=== PATIENT | female | born 1965 | race Caucasian/White ===

== ENCOUNTER 2024-03-02 18:24 | Inpatient (IN) | payer OTHER ==
[~2024-03-02] VITALS: Ht 152.4 cm; Wt 74.4 kg
[2024-03-02] MEDS: MORPHINE SULFATE 4 MG/ML INJ (FOR IV/IM USE) IV STA (19:03)
[2024-03-02] MEDS: SODIUM CHLORIDE 0.9% 1,000 ML IV ONE (19:03)
[2024-03-02] MEDS: ONDANSETRON HCL 4MG/2ML INJ IV STA (19:03)
[2024-03-02 19:17] LABS: BASOPHILS % 0.5 % (0.0-2.0); EOSINOPHILS % 0.3 % (0.0-5.0); HEMATOCRIT. 42.4 % (36.0-48.0); HEMOGLOBIN. 14.9 g/dL (12.0-16.0); LYMPHOCYTES % 15.1 % (20.0-50.0); MEAN CORPUSCULAR HEMOGLOBIN 33.7 pg (28.0-32.0); MEAN CORPUSCULAR HGB CONC 35.1 g/dL (31.0-37.0); MEAN CORPUSCULAR VOLUME 96.2 fL (81.0-99.0); MEAN PLATELET VOLUME 8.8 fl (7.4-10.4); MONOCYTES % 7.9 % (2.0-8.0); NEUTROPHILS % 76.2 % (40.0-76.0); PLATELET 457 x1000/uL (130-400); RED BLOOD CELL COUNT 4.41 mill/uL (4.2-5.4); RED CELL DISTRIBUTION WIDTH 13.5 % (11.6-14.6)
[2024-03-02 19:26] LABS: INR 0.9; PROTHROMBIN TIME 10.5 sec (9.6-11.0)
[2024-03-02] MEDS: MORPHINE SULFATE 4 MG/ML INJ (FOR IV/IM USE) IV ONE (20:05)
[2024-03-02] MEDS ORDERED: ACETAMINOPHEN 650MG/20.3ML UDC PO ONE (23:45)
[2024-03-03] VITALS: BP_SYST 142; BP_SYST 154; BP_DIAS 77; BP_DIAS 87; PULSE 70; PULSE 74; RESP 18; TEMP 97.7
[2024-03-03] MEDS ORDERED: CLON0.122 MT (01:11)
[2024-03-03] MEDS ORDERED: MELO-106 PO (01:20)
[2024-03-03] MEDS ORDERED: METH-774 MT (01:26)
[2024-03-03] MEDS ORDERED: ONDANSETRON HCL 4MG/2ML INJ IV PRN (01:30)
[2024-03-03] MEDS ORDERED: NA PHOS,M-B/NA PHOS,DI-BA ENEMA 118ML PR PRN (01:30)
[2024-03-03] MEDS ORDERED: IPRATROPIUM/ALBUTEROL 0.5-3(2.5)MG/3ML NEB HHN PRN (01:30)
[2024-03-03] MEDS ORDERED: MAGNESIUM/ALUMINUM HYDROXIDE/SIMETHICONE 30ML UDC PO PRN (01:30)
[2024-03-03] MEDS ORDERED: ACETAMINOPHEN 325MG TABLET PO PRN (01:30)
[2024-03-03] MEDS ORDERED: ESCI5SOL2 PO (01:30)
[2024-03-03] MEDS ORDERED: HYDRALAZINE 20MG/ML VIAL IV PRN (01:30)
[2024-03-03] MEDS ORDERED: DOXE10CA2 PO (01:33)
[2024-03-03] MEDS ORDERED: LAMO200T50 MT (01:37)
[2024-03-03] MEDS ORDERED: LAMO200T50 PO (01:37)
[2024-03-03] MEDS ORDERED: ALPR-339 MT (01:40)
[2024-03-03] MEDS ORDERED: HYDRALAZINE 10 MG in SODIUM CHLORIDE 0.9% 49.5 ML IV PRN (02:00)
[2024-03-03] MEDS ORDERED: *PATIENT'S OWN MEDICATION STORAGE XX SCH (03:15)
[2024-03-03] MEDS: PANTOPRAZOLE SODIUM 40 MG/VIAL IV SCH (03:28)
[2024-03-03] MEDS: MVI, ADULT NO.1 10 ML, FOLIC ACID 1 MG, THIAMINE HCL 100 MG in SODIUM CHLORIDE 0.9% 1,0... IV NR (03:28)
[2024-03-03 04:00] VITALS: BP 142/77; PULSE 70; RESP 18; TEMP 97.7
[2024-03-03 05:46] LABS: CLARITY URINE CLEAR (CLEAR); COLOR URINE YELLOW (YELLOW); GLUCOSE URINE NEGATIVE (NEGATIVE); KETONES URINE TRACE (NEGATIVE); LEUKOCYTE ESTERASE URINE TRACE (NEGATIVE); NITRITE URINE NEGATIVE (NEGATIVE); OCCULT BLOOD URINE NEGATIVE (NEGATIVE); PROTEIN URINE NEGATIVE (NEGATIVE); SPECIFIC GRAVITY URINE 1.013 (1.005-1.030)
[2024-03-03 05:47] LABS: CHLORIDE 101 mEq/L (98-107); SODIUM 138 mEq/L (136-145)
[2024-03-03 05:48] LABS: CALCIUM 8.4 mg/dL (8.7-10.4); CARBON DIOXIDE 29 mEq/L (21-32)
[2024-03-03 05:53] LABS: CREATININE 0.6 mg/dL (0.6-1.0); GLUCOSE 115 mg/dL (70-105); UREA NITROGEN BLOOD 8 mg/dL (9-23)
[2024-03-03 05:55] LABS: ALANINE AMINOTRANSFERASE 15 IU/L (10-49); ALBUMIN 3.9 g/dL (3.2-4.8); ASPARTATE AMINOTRANSFERASE 17 IU/L (<34); CREATINE KINASE 67 IU/L (34-145); INR 0.9; PHOSPHORUS 4.3 mg/dL (2.5-4.9); PROTHROMBIN TIME 10.4 sec (9.6-11.0)
[2024-03-03 05:56] LABS: PROTEIN TOTAL 5.7 g/dL (6.0-8.3); TROPONIN I HIGH SENSITIVITY < 4 ng/L (3.0-34)
[2024-03-03 05:56] LABS: *AMPHETAMINES SCREEN URINE NEGATIVE (NEGATIVE); *BARBITURATES SCREEN URINE NEGATIVE (NEGATIVE); *BENZODIAZEPINES SCREEN URINE PRESUMPTIVE POSITIVE (NEGATIVE); *COCAINE SCREEN URINE NEGATIVE (NEGATIVE); METHADONE URINE SCREEN NEGATIVE (NEGATIVE)
[2024-03-03 05:57] LABS: CANNABINOID URINE SCREEN PRESUMPTIVE POSITIVE (NEGATIVE); ECSTASY MDMA SCREEN URINE NEGATIVE (NEGATIVE); OPIATES URINE SCREEN PRESUMPTIVE POSITIVE (NEGATIVE); PHENCYCLIDINE URINE SCREEN NEGATIVE (NEGATIVE)
[2024-03-03 05:58] LABS: FOLIC ACID (FOLATE) SERUM > 20.00 ng/mL (>5.38); VITAMIN B12 SERUM 680 pg/mL (211-911)
[2024-03-03 05:59] LABS: POTASSIUM 2.7 mEq/L (3.5-5.1)
[2024-03-03 06:11] LABS: WBC URINE NONE SEEN /hpf (0-2)
[2024-03-03 06:12] LABS: BACTERIA URINE TRACE; RBC URINE NONE SEEN /hpf (0-2); SQUAMOUS EPITHELIAL CELL URINE NONE SEEN /lpf (RARE/1+)
[2024-03-03] MEDS: SUCRALFATE 1G TABLET PO SCH (07:20)
[2024-03-03 08:00] VITALS: BP 134/82; PULSE 66; RESP 18; TEMP 97.6
[2024-03-03] MEDS: POTASSIUM CHLORIDE 20MEQ/PACKET PO NR (09:00)
[2024-03-03 12:00] VITALS: BP 123/72; PULSE 59; RESP 18; TEMP 98.3
[2024-03-03] MEDS: KCL 20MEQ/100ML PREMIX 100 ML IV SCH (13:21)
[2024-03-03 15:21] LABS: CREATINE KINASE MB FRACTION 0.7 ng/mL (0.5-3.6)
[2024-03-03 15:22] LABS: CREATINE KINASE 50 IU/L (34-145)
[2024-03-03 15:35] LABS: TROPONIN I HIGH SENSITIVITY < 4 ng/L (3.0-34)
[2024-03-03 16:00] VITALS: BP 138/77; PULSE 17; RESP 17; TEMP 98.6
[2024-03-03 20:00] VITALS: BP 126/72; PULSE 60; RESP 19; TEMP 97.6
[2024-03-04] VITALS: BP 143/77; PULSE 66; RESP 20; TEMP 97.8
[2024-03-04] MEDS: LORAZEPAM 2MG/ML INJ IV PRN (00:54)
[2024-03-04 04:00] VITALS: BP 150/75; PULSE 72; RESP 19; TEMP 97.7
[2024-03-04 06:45] LABS: EOSINOPHILS % 3.1 % (0.0-5.0); HEMOGLOBIN. 13.2 g/dL (12.0-16.0); MEAN CORPUSCULAR HEMOGLOBIN 33.9 pg (28.0-32.0); MEAN CORPUSCULAR HGB CONC 34.6 g/dL (31.0-37.0); MEAN CORPUSCULAR VOLUME 97.8 fL (81.0-99.0); MEAN PLATELET VOLUME 8.6 fl (7.4-10.4); MONOCYTES % 10.4 % (2.0-8.0); NEUTROPHILS % 48.5 % (40.0-76.0); PLATELET 337 x1000/uL (130-400); RED BLOOD CELL COUNT 3.89 mill/uL (4.2-5.4); RED CELL DISTRIBUTION WIDTH 13.3 % (11.6-14.6); WHITE BLOOD COUNT 7.6 x1000/uL (4.5-11.0)
[2024-03-04 07:07] LABS: CHLORIDE 105 mEq/L (98-107); POTASSIUM 3.1 mEq/L (3.5-5.1); SODIUM 141 mEq/L (136-145)
[2024-03-04 07:08] LABS: CALCIUM 9.2 mg/dL (8.7-10.4); CARBON DIOXIDE 27 mEq/L (21-32)
[2024-03-04 07:12] LABS: TRIGLYCERIDE 71 mg/dL (0-150)
[2024-03-04 07:13] LABS: CREATININE 0.5 mg/dL (0.6-1.0); GLUCOSE 79 mg/dL (70-105); PROTEIN TOTAL 5.4 g/dL (6.0-8.3); UREA NITROGEN BLOOD 5 mg/dL (9-23)
[2024-03-04 07:14] LABS: ALANINE AMINOTRANSFERASE 13 IU/L (10-49); LDL CHOLESTEROL 49 mg/dL (5-100)
[2024-03-04 07:15] LABS: ALBUMIN 3.7 g/dL (3.2-4.8); ASPARTATE AMINOTRANSFERASE 16 IU/L (<34); BILIRUBIN DIRECT 0.2 mg/dL (<=3.0); CHOLESTEROL 118 mg/dL (<200); HDL CHOLESTEROL 59 mg/dL (>65); PHOSPHORUS 3.7 mg/dL (2.5-4.9); THYROID STIMULATING HORMONE 1.27 uIU/mL (0.55-4.78)
[2024-03-04 07:16] LABS: BILIRUBIN TOTAL 0.5 mg/dL (0.1-1.0)
[2024-03-04 08:00] VITALS: BP 133/83; PULSE 62; RESP 17; TEMP 98.7
[2024-03-04] MEDS: THIAMINE HCL 100MG TABLET PO SCH (08:24)
[2024-03-04] MEDS: POTASSIUM CHLORIDE 20MEQ TABLET SR PO NR (10:31)
[2024-03-04] MEDS: ACETAMINOPHEN 325MG TABLET PO PRN (10:51)
[2024-03-04 12:00] VITALS: BP 110/69; PULSE 64; RESP 18; TEMP 97.3
[2024-03-04] MEDS ORDERED: ESCI-7 MT (13:35)
[2024-03-04] MEDS ORDERED: MELO-106 MT (13:35)
[2024-03-04] MEDS ORDERED: DOXE10CA2 MT (13:35)
[2024-03-04] MEDS ORDERED: ONDA4TAB50 MT (13:35)
[2024-03-04] MEDS ORDERED: LAMO200T9 MT (13:35)
[2024-03-04] MEDS ORDERED: CLON1TAB12 PO (13:35)
[2024-03-04] MEDS ORDERED: METH-773 MT (13:35)
[2024-03-04] MEDS ORDERED: NON FORMULARY PATIENT HOME MED PO SCH ×2 (14:30→21:00)
[2024-03-04] MEDS: LAMOTRIGINE 100MG TABLET PO SCH (15:08)
[2024-03-04] MEDS: CITALOPRAM HYDROBROMIDE 10MG TABLET PO SCH (15:09)
[2024-03-04 16:00] VITALS: BP 114/77; PULSE 64; RESP 18; TEMP 97.3
[2024-03-04] MEDS ORDERED: SUCRALFATE 1G TABLET PO SCH (17:20)
[2024-03-04] MEDS: CLONAZEPAM 1MG TABLET PO SCH (18:07)
[2024-03-04] MEDS: METOCLOPRAMIDE HCL 10MG/2ML VIAL IV SCH (18:38)
[2024-03-04 20:00] VITALS: BP 116/75; PULSE 87; RESP 18; TEMP 98.1
[2024-03-04] MEDS ORDERED: DOXEPIN HCL 10MG CAPSULE PO SCH (21:00)
[2024-03-04] MEDS: DOXEPIN 10 MG PO SCH (22:24)
[2024-03-05] VITALS: BP 121/87; PULSE 92; RESP 18; TEMP 97.8
[2024-03-05 04:00] VITALS: BP 119/88; PULSE 88; RESP 18; TEMP 97.6
[2024-03-05 08:00] VITALS: BP 122/77; PULSE 54; RESP 19; TEMP 98.1
[2024-03-05 08:31] LABS: BASOPHILS % 1.3 % (0.0-2.0); CARBON DIOXIDE 28 mEq/L (21-32); CHLORIDE 102 mEq/L (98-107); EOSINOPHILS % 2.9 % (0.0-5.0); HEMATOCRIT. 38.2 % (36.0-48.0); HEMOGLOBIN. 12.9 g/dL (12.0-16.0); LYMPHOCYTES % 35.2 % (20.0-50.0); MEAN CORPUSCULAR HEMOGLOBIN 33.5 pg (28.0-32.0); MEAN CORPUSCULAR HGB CONC 33.7 g/dL (31.0-37.0); MEAN CORPUSCULAR VOLUME 99.5 fL (81.0-99.0); MEAN PLATELET VOLUME 8.2 fl (7.4-10.4); MONOCYTES % 9.3 % (2.0-8.0); NEUTROPHILS % 51.3 % (40.0-76.0); PLATELET 384 x1000/uL (130-400); POTASSIUM 3.7 mEq/L (3.5-5.1); RED BLOOD CELL COUNT 3.84 mill/uL (4.2-5.4); RED CELL DISTRIBUTION WIDTH 13.1 % (11.6-14.6); SODIUM 137 mEq/L (136-145); WHITE BLOOD COUNT 6.6 x1000/uL (4.5-11.0)
[2024-03-05 08:32] LABS: CALCIUM 9.2 mg/dL (8.7-10.4)
[2024-03-05 08:37] LABS: CREATININE 0.6 mg/dL (0.6-1.0); GLUCOSE 84 mg/dL (70-105); UREA NITROGEN BLOOD 6 mg/dL (9-23)
[2024-03-05 08:39] LABS: PHOSPHORUS 3.5 mg/dL (2.5-4.9)
[2024-03-05] MEDS ORDERED: LACTULOSE 20G/30ML UDC PO PRN (09:45)
[2024-03-05 12:00] VITALS: BP 112/77; PULSE 78; RESP 18; TEMP 98.4
[2024-03-05] MEDS ORDERED: ALPRAZOLAM 0.25 MG TABLET PO PRN (12:00)
[2024-03-05 16:00] VITALS: BP 131/81; PULSE 66; RESP 19; TEMP 97.6
[2024-03-05 20:00] VITALS: BP_SYST 131; PULSE 78; RESP 19; TEMP 97.2
[2024-03-06] VITALS: BP_SYST 131; PULSE 82; RESP 19; TEMP 97.2
[2024-03-06 04:00] VITALS: BP_SYST 131; PULSE 78; RESP 19; TEMP 98.2
[2024-03-06 07:32] LABS: CARBON DIOXIDE 28 mEq/L (21-32); CHLORIDE 106 mEq/L (98-107); POTASSIUM 3.5 mEq/L (3.5-5.1); SODIUM 141 mEq/L (136-145)
[2024-03-06 07:33] LABS: CALCIUM 9.1 mg/dL (8.7-10.4)
[2024-03-06 07:34] LABS: BASOPHILS % 1.3 % (0.0-2.0); EOSINOPHILS % 5.1 % (0.0-5.0); HEMATOCRIT. 39.6 % (36.0-48.0); HEMOGLOBIN. 13.6 g/dL (12.0-16.0); LYMPHOCYTES % 39.2 % (20.0-50.0); MEAN CORPUSCULAR HEMOGLOBIN 33.8 pg (28.0-32.0); MEAN CORPUSCULAR HGB CONC 34.3 g/dL (31.0-37.0); MEAN CORPUSCULAR VOLUME 98.6 fL (81.0-99.0); MEAN PLATELET VOLUME 8.2 fl (7.4-10.4); MONOCYTES % 8.7 % (2.0-8.0); NEUTROPHILS % 45.7 % (40.0-76.0); PLATELET 405 x1000/uL (130-400); RED BLOOD CELL COUNT 4.01 mill/uL (4.2-5.4); WHITE BLOOD COUNT 5.9 x1000/uL (4.5-11.0)
[2024-03-06 07:36] LABS: INR 0.9; PROTHROMBIN TIME 10.4 sec (9.6-11.0)
[2024-03-06 07:37] LABS: CREATININE 0.6 mg/dL (0.6-1.0)
[2024-03-06 07:38] LABS: GLUCOSE 77 mg/dL (70-105)
[2024-03-06 07:39] LABS: ALANINE AMINOTRANSFERASE 12 IU/L (10-49); ALBUMIN 3.6 g/dL (3.2-4.8); ASPARTATE AMINOTRANSFERASE 15 IU/L (<34)
[2024-03-06 07:40] LABS: BILIRUBIN TOTAL 0.3 mg/dL (0.1-1.0); PROTEIN TOTAL 5.8 g/dL (6.0-8.3)
[2024-03-06 07:41] LABS: UREA NITROGEN BLOOD < 5 mg/dL (9-23)
[2024-03-06 08:00] VITALS: BP 120/72; PULSE 68; RESP 19; TEMP 97.2
[2024-03-06] MEDS: LORAZEPAM 2MG/ML INJ IV SCH (09:37)
[2024-03-06 12:25] VITALS: BP 137/87; PULSE 75; RESP 18; TEMP 97.5
[2024-03-06] MEDS ORDERED: MIDAZOLAM HCL 2 MG/2 ML VIAL ONE (12:46)
[2024-03-06] MEDS ORDERED: SIMETHICONE 40 MG/0.6 ML 15ML ONE (12:47)
[2024-03-06] MEDS ORDERED: ONDANSETRON HCL 4MG/2ML INJ ONE (12:50)
[2024-03-06] MEDS ORDERED: DEXAMETHASONE 4MG/ML 1ML VIAL ONE (12:50)
[2024-03-06] MEDS ORDERED: PROPOFOL 200MG/20ML VIAL IV ONE ×2 (12:51→13:02)
[2024-03-06 16:00] VITALS: BP 126/73; PULSE 67; RESP 18; TEMP 97.5
[2024-03-06 20:00] VITALS: BP 145/69; PULSE 72; RESP 19; TEMP 96.7
[2024-03-07 07:06] LABS: BASOPHILS % 0.8 % (0.0-2.0); HEMATOCRIT. 38.1 % (36.0-48.0); HEMOGLOBIN. 13.1 g/dL (12.0-16.0); LYMPHOCYTES % 37.9 % (20.0-50.0); MEAN CORPUSCULAR HEMOGLOBIN 33.6 pg (28.0-32.0); MEAN CORPUSCULAR HGB CONC 34.5 g/dL (31.0-37.0); MEAN CORPUSCULAR VOLUME 97.3 fL (81.0-99.0); MEAN PLATELET VOLUME 7.9 fl (7.4-10.4); NEUTROPHILS % 50.3 % (40.0-76.0); PLATELET 393 x1000/uL (130-400); RED BLOOD CELL COUNT 3.91 mill/uL (4.2-5.4); RED CELL DISTRIBUTION WIDTH 13.3 % (11.6-14.6)
[2024-03-07 07:13] LABS: CARBON DIOXIDE 29 mEq/L (21-32); CHLORIDE 104 mEq/L (98-107); POTASSIUM 3.2 mEq/L (3.5-5.1); SODIUM 140 mEq/L (136-145)
[2024-03-07 07:14] LABS: CALCIUM 8.7 mg/dL (8.7-10.4)
[2024-03-07 07:19] LABS: CREATININE 0.5 mg/dL (0.6-1.0); GLUCOSE 87 mg/dL (70-105)
[2024-03-07 07:20] LABS: UREA NITROGEN BLOOD < 5 mg/dL (9-23)
[2024-03-07 08:00] VITALS: BP 130/77; PULSE 87; RESP 16; TEMP 97.7
[2024-03-07] MEDS: POTASSIUM CHLORIDE 20MEQ TABLET SR PO NR (10:04)
[2024-03-07 10:44] LABS: BASOPHILS % 0.9 % (0.0-2.0); EOSINOPHILS % 2.3 % (0.0-5.0); HEMATOCRIT. 41.4 % (36.0-48.0); HEMOGLOBIN. 14.2 g/dL (12.0-16.0); LYMPHOCYTES % 36.2 % (20.0-50.0); MEAN CORPUSCULAR HEMOGLOBIN 33.5 pg (28.0-32.0); MEAN CORPUSCULAR HGB CONC 34.4 g/dL (31.0-37.0); MEAN CORPUSCULAR VOLUME 97.4 fL (81.0-99.0); MONOCYTES % 8.9 % (2.0-8.0); NEUTROPHILS % 51.7 % (40.0-76.0); PLATELET 437 x1000/uL (130-400); RED BLOOD CELL COUNT 4.25 mill/uL (4.2-5.4); RED CELL DISTRIBUTION WIDTH 13.5 % (11.6-14.6)
[2024-03-07 11:02] LABS: CHLORIDE 103 mEq/L (98-107); POTASSIUM 3.2 mEq/L (3.5-5.1); SODIUM 138 mEq/L (136-145)
[2024-03-07 11:03] LABS: CARBON DIOXIDE 29 mEq/L (21-32)
[2024-03-07 11:04] LABS: CALCIUM 9.1 mg/dL (8.7-10.4)
[2024-03-07 11:08] LABS: CREATININE 0.6 mg/dL (0.6-1.0); GLUCOSE 78 mg/dL (70-105)
[2024-03-07 11:27] LABS: UREA NITROGEN BLOOD < 5 mg/dL (9-23)
[2024-03-07 12:00] VITALS: BP 113/78; PULSE 69; RESP 19; TEMP 97.7
[2024-03-07] MEDS ORDERED: SUCR1TAB30 PO (12:38)
[2024-03-07] MEDS ORDERED: METO10TA3 MT (12:38)
[2024-03-07] MEDS ORDERED: PANT40SU MT (12:38)
[2024-03-07 14:13] VITALS: BP 113/78; PULSE 69; TEMP 97.7; O2SAT 98
== END 2024-03-07 14:15 | disposition home or self-care (01) | DRG 392 ==
LOC: ER 18:24 → 6EST 23:55
PROVIDERS: ADMIT Preventive Medicine Clinical Informatics; ATTEND Preventive Medicine Clinical Informatics
PROC: 0DJ08ZZ Inspection of Upper Intestinal Tract, Via Natural or Artificial Opening Endoscopic (ICD-10-PCS; principal; 2024-03-06)
DX: K29.70 Gastritis, unspecified, without bleeding (principal); K22.10 Ulcer of esophagus without bleeding; F31.81 Bipolar II disorder; K21.00 Gastro-esophageal reflux disease with esophagitis, without bleeding; R16.0 Hepatomegaly, not elsewhere classified; D64.9 Anemia, unspecified; K28.9 Gastrojejunal ulcer, unspecified as acute or chronic, without hemorrhage or perforation; E66.01 Morbid (severe) obesity due to excess calories; Z68.32 Body mass index [BMI] 32.0-32.9, adult; M19.90 Unspecified osteoarthritis, unspecified site; D72.829 Elevated white blood cell count, unspecified; E87.6 Hypokalemia; F41.0 Panic disorder [episodic paroxysmal anxiety]; Z87.19 Personal history of other diseases of the digestive system; Z98.84 Bariatric surgery status; Z87.891 Personal history of nicotine dependence; Z87.11 Personal history of peptic ulcer disease
CPT/HCPCS: 36415; 71045; 74176; 80048; 80053; 80061; 80076; 80305; 80320; 81003; 82550; 82553; 82607; 82746; 83605; 83735; 84100; 84145; 84443; 84484; 85025; 93005; 93970; 99285; C1893; C9113; J1100; J2060; J2250; J2270; J2405; J2704; J2765; J3411; J3480; J3490; J7030